=== PATIENT | male | born 1990 | race Caucasian/White ===

== ENCOUNTER 2017-11-07 16:48 | Emergency (ER) | payer SELFPAY ==
--- NOTE | 2017-11-07 17:05 | EDM.PDOC ---
ED HPI GENERAL MEDICAL PROBLEM - General Stated Complaint: PAIN LT ELBOW/ARM Time Seen by Provider: 11/07/17 17:11 Source of Information: Reports: Patient History Limitations: Reports: No Limitations - History of Present Illness INITIAL COMMENTS - FREE TEXT/NARRATIVE: HISTORY AND PHYSICAL: Left arm pain History of present illness: Patient is a 27-year-old male who presents to the emergency room with complaints of left elbow and forearm pain for one week. He states approximately one week ago he was at work when 2 pieces of pipe "crushed my forearm". States he has had increased pain that has not resolved since that incident. While he was at work he mentioned this to his employer who requested that he get this evaluated. Currently has an Jose Alfredo wrap loosely wrapped around the left elbow and forearm. Healing bruising is noted to the left forearm. Tdap is up-to-date. Strong radial pulse, + CMS, capillary refill less than 3 seconds Affected extremity. Previously had surgery to the left forearm when the patient was 6, scar noted. Review of systems: As per history of present illness and below otherwise all systems reviewed and negative. Past medical history: As per history of present illness and as reviewed below otherwise noncontributory. Surgical history: As per history of present illness and as reviewed below otherwise noncontributory. Social history: No reported history of drug or alcohol abuse. Family history: As per history of present illness and as reviewed below otherwise noncontributory. Physical exam: Gen.: Well-developed and well-nourished 27-year-old male. He is alert and oriented. Appears nontoxic and in no acute distress HEENT: Atraumatic, normocephalic, pupils reactive, negative for conjunctival pallor or scleral icterus, mucous membranes moist, throat clear, neck supple, nontender, trachea midline. Lungs: Clear to auscultation, breath sounds equal bilaterally, chest nontender. Heart: S1S2, regular, negative for clicks, rubs, or JVD. Abdomen: Soft, nondistended, nontender. Negative for masses or hepatosplenomegaly. Negative for costovertebral tenderness. Pelvis: Stable nontender. Genitourinary: Deferred. Rectal: Deferred. Extremities:Moves all extremities per self. Has full range of motion of the left elbow, wrists and finger joints without any difficulty. Drawn radial pulse , CMS, capillary refill less than 3 seconds to the left upper extremity. Denies any numbness or tingling to the affected extremity. Neurovascular unremarkable. Skin: Yellow /brown healing bruising noted to the left mid forearm. No open skin noted. Warm, dry and intact. No rashes or lesions noted Neuro: Awake, alert, oriented. Cranial nerves II through XII unremarkable. Cerebellum unremarkable. Motor and sensory unremarkable throughout. Exam nonfocal. Discussed the x-ray reading with the patient. We discussed comfort measures. Follow up with his primary care provider/orthopedic provider for further follow- up if he continues to have pain. An MRI may be warranted to assess ligament/ tendon involvement. Patient voices understanding and is agreeable to plan of care. Denies any further questions at this time. Diagnostics: X-ray of the left elbow and forearm Therapeutics: Declined Toradol Sling/Jose Alfredo wrap Impression: Contusion Plan: 1. X-rays did not demonstrate any fractures. If he continued to have pain you may want a follow-up with orthopedics as they may need to do an MRI to assess tendon and ligaments. 2. Continue to wear an Jose Alfredo wrap to provide compression/comfort. He may use the sling as needed over the next week. Rest, ice, elevate the extremity. He may use Tylenol and/or ibuprofen as needed for pain management. 3. As we discussed please follow-up with your thorough in the next 1-2 days. Return to the ED as needed and as discussed. Definitive disposition and diagnosis as appropriate pending reevaluation and review of above. Left Arm Pain Score (Numeric/FACES): 6 - Related Data Allergies Allergy/AdvReac Type Severity Reaction Status Date / Time No Known Allergies Allergy Verified 11/07/17 17:01 Home Meds: Home Meds . [No Known Home Meds] 11/07/17 [History] Review of Systems - Review of Systems Review Of Systems: ROS reveals no pertinent complaints other than HPI. ED EXAM, GENERAL - Physical Exam Exam: See Below (See dictation) Course - Vital Signs Last Recorded V/S: Last Vital Signs Temp 97.8 F 11/07/17 17:02 Pulse 112 H 11/07/17 17:02 Resp 18 11/07/17 17:02 BP 153/71 H 11/07/17 17:02 Pulse Ox 97 11/07/17 17:02 - Orders/Labs/Meds Orders: Active Orders 24 hr Category Date Time Status Elbow Min 3V Lt [CR] Stat Exams 11/07/17 17:10 Taken Forearm 2V Lt [CR] Stat Exams 11/07/17 17:10 Taken Departure - Departure Time of Disposition: 18:07 Disposition: Home, Self-Care 01 Clinical Impression: Contusion Qualifiers: Encounter type: initial encounter Contusion area: forearm Laterality: left Qualified Code(s): S50.12XA - Contusion of left forearm, initial encounter - Discharge Information Referrals: PCP,None [Primary Care Provider] - Additional Instructions: My general discharge The following information is given to patients seen in the emergency department who are being discharged to home. This information is to outline your options for follow-up care. We provide all patients seen in our emergency department with a follow-up referral. The need for follow-up, as well as the timing and circumstances, are variable depending upon the specifics of your emergency department visit. If you don't have a primary care physician on staff, we will provide you with a referral. We always advise you to contact your personal physician following an emergency department visit to inform them of the circumstance of the visit and for follow-up with them and/or the need for any referrals to a consulting specialist. The emergency department will also refer you to a specialist when appropriate. This referral assures that you have the opportunity for follow-up care with a specialist. All of these measure are taken in an effort to provide you with optimal care, which includes your follow-up. Under all circumstances we always encourage you to contact your private physician who remains a resource for coordinating your care. When calling for follow-up care, please make the office aware that this follow-up is from your recent emergency room visit. If for any reason you are refused follow-up, please contact the [facility] Emergency Department at and asked to speak to the emergency department charge nurse. [facility] - [facility] Professional Building [address] [place] [address], [address] [place] [address] [facility] [place] [id number] 1. X-rays did not demonstrate any fractures. If he continued to have pain you may want a follow-up with orthopedics as they may need to do an MRI to assess tendon and ligaments. 2. Continue to wear an Jose Alfredo wrap to provide compression/comfort. He may use the sling as needed over the next week. Rest, ice, elevate the extremity. He may use Tylenol and/or ibuprofen as needed for pain management. 3. As we discussed please follow-up with your thorough in the next 1-2 days. Return to the ED as needed and as discussed. - My Orders Last 24 Hours: My Active Orders 11/07/17 17:10 Elbow Min 3V Lt [CR] Stat Forearm 2V Lt [CR] Stat - Assessment/Plan Last 24 Hours: My Active Orders 11/07/17 17:10 Elbow Min 3V Lt [CR] Stat Forearm 2V Lt [CR] Stat
--- NOTE | 2017-11-08 10:58 | CR ---
EXAM DATE: 11/07/17 PATIENT'S AGE: 27 Patient: NATALIE REEVES Facility: [place], [place] Site . Site : 1990 Study: XRay Extremity forearm [id number]/12/[id number] 5:48:24 PM Ordering Physician: Doctor Smith Final Report: INDICATION: Crush forearm injury for 1 week TECHNIQUE: Forearm radiograph 2 views left COMPARISON: None FINDINGS: Bones: Alignment is normal. No acute fractures or aggressive bone lesions identified. Joint spaces: The radiocarpal joint and carpal rows are unremarkable. The elbow joint is not profiled. If there is pain or tenderness surrounding the elbow, dedicated views of the elbow are recommended. Soft tissues: Unremarkable. No radiopaque foreign bodies are seen. IMPRESSION: 1. No acute osseous injuries are noted. Dictated by: Ralf Saxena MD @ 11/07/2017 18:01:50 (Electronic Signature) Report Signed by Proxy. FRANCINE
--- NOTE | 2017-11-08 10:59 | CR ---
EXAM DATE: 11/07/17 PATIENT'S AGE: 27 Patient: NATALIE REEVES Facility: [place], [place] Site . Site : 1990 Study: XRay Extremity elbow [id number]/[id number] 5:48:59 PM Ordering Physician: Doctor Smith Final Report: INDICATION: Crush elbow injury for 1 week TECHNIQUE: Elbow radiograph 3 views left COMPARISON: None FINDINGS: Bones: Alignment is normal. No acute fractures or aggressive bone lesions identified. Joint spaces: Unremarkable. No displacement of the anterior or posterior fat pads are noted to suggest an elbow effusion. Soft tissues: Unremarkable. No radiopaque foreign bodies are seen. IMPRESSION: 1. No acute osseous injuries are noted. Dictated by: Ralf Saxena MD @ 11/07/2017 18:02:27 (Electronic Signature) Report Signed by Proxy. FRANCINE
== END 2017-11-07 18:13 | disposition home or self-care (01) ==
LOC: MW.ED 16:48
DX: S50.12XA Contusion of left forearm, initial encounter (principal); W23.1XXA Caught, crushed, jammed, or pinched between stationary objects, initial encounter
CPT/HCPCS: 73080-26-LT; 73080-LT; 73090-26-LT; 73090-LT; 99283

== ENCOUNTER 2022-06-07 23:33 | Emergency (ER) | payer SELFPAY | END 2022-06-08 01:31 | disposition home or self-care (01) | LOC: MW.ED 23:33 | DX: T18.108A Unspecified foreign body in esophagus causing other injury, initial encounter (principal) | CPT/HCPCS: 70360; 70360-26; 99284 ==